=== PATIENT | female | born 1945 | race Caucasian/White ===

== ENCOUNTER 2024-05-03 07:56 | Observation (INO) | payer OTHER ==
[2024-05-02 11:45] VITALS: BMI 38.6
[2024-05-03] MEDS ORDERED: PROPOFOL 20 ML ONE (10:25)
[2024-05-03] MEDS ORDERED: fentaNYL PF 100 MCG/2 ML SYRINGE ONE (10:25)
[2024-05-03] MEDS ORDERED: Ondansetron PF 4 MG/2 ML Vial ONE (10:26)
[2024-05-03] MEDS ORDERED: Lidocaine 1% PF 5 ML VIAL ONE (10:26)
[2024-05-03] MEDS ORDERED: Dexamethasone 20 MG/5 ML VIAL ONE (10:26)
[2024-05-03] MEDS ORDERED: Lidocaine 2% 6 ML (Jelly) SYR ONE (10:30)
[2024-05-03] MEDS ORDERED: EPINEPHrine 1 MG/ML VIAL ONE (11:07)
[2024-05-03] MEDS ORDERED: PHENYLEPHRINE-NS 100 MCG/ML 10 ML SYRINGE ONE (11:07)
[2024-05-03 11:18] LABS: Hematocrit 42.9 % (36.0-47.0); Hemoglobin 14.5 g/dL (12.0-16.0)
[2024-05-03 11:55] LABS: Anion Gap 15 mmol/L (10-20); BUN (Urea Nitrogen) 13 mg/dL (9.8-20.1); Calc. Creatinine Clearance 91 mL/min (70-130); Calcium 9.3 mg/dL (7.8-10.44); Carbon Dioxide 21 mmol/L (23-31); Chloride 102 mmol/L (98-107); Estimated GFR 78; Glucose 91 mg/dL (83-110); Potassium 4.1 mmol/L (3.5-5.1); Sodium 134 mmol/L (136-145)
[2024-05-03] MEDS ORDERED: Dexamethasone 4 mg/ml Vial ONE (16:09)
[2024-05-03] MEDS ORDERED: Furosemide 20 MG (2 mL) VIAL ONE (16:25)
[2024-05-03] MEDS ORDERED: Ipratropium/Albuterol 3 ML NEB ONE (16:52)
[2024-05-03] MEDS ORDERED: Senokot S 8.6-50 MG TAB PO PRN (17:53)
[2024-05-03] MEDS ORDERED: Acetaminophen 325 MG TAB PO PRN (17:53)
[2024-05-03] MEDS ORDERED: Ondansetron PF 4 MG/2 ML Vial IVP PRN (17:53)
[2024-05-03] MEDS ORDERED: Calcium Carbonate 500 MG ChewTAB PO PRN (17:53)
[2024-05-03 19:06] LABS: #Basophils 0.04 10x3/uL (0.0-0.2); #Eosinphils Less than 0.03 10x3/uL (0.0-0.7); %Basophils 0.3 % (0.0-1.0); %Eosinophils 0.1 % (0.0-10.0); %Lymphocytes 6.6 % (21.0-51.0); %Monocytes 1.3 % (0.0-10.0); %Neutrophils 91.4 % (42.0-75.0); Hematocrit 44.5 % (36.0-47.0); Hemoglobin 14.6 g/dL (12.0-16.0); Mean Corpuscular HGB CONC 32.8 g/dL (32.0-36.0); Mean Corpuscular Hemoglobin 30.7 pg (27.0-31.0); Mean Corpuscular Volume 93.7 fL (78.0-98.0); Mean Platelet Volume 9.2 fL (7.4-10.4); Platelet Count 231 10x3/uL (130-400); RBC Distribution Width 11.7 % (11.5-14.5); Red Blood Cell (RBC) Count 4.75 mill/uL (4.20-5.40)
[2024-05-03 19:36] LABS: ALT (SGPT) 10 U/L (8-55); AST (SGOT) 19 U/L (5-34); Albumin 3.8 g/dL (3.4-4.8); Alkaline Phosphatase 96 U/L (40-110); Anion Gap 13 mmol/L (10-20); BUN (Urea Nitrogen) 13 mg/dL (9.8-20.1); Bilirubin, Total 0.5 mg/dL (0.2-1.2); Calc. Creatinine Clearance 89 mL/min (70-130); Calcium 9.2 mg/dL (7.8-10.44); Carbon Dioxide 22 mmol/L (23-31); Chloride 100 mmol/L (98-107); Estimated GFR 76; Globulin 3.4 g/dL (2.4-3.5); Glucose 133 mg/dL (83-110); Potassium 3.6 mmol/L (3.5-5.1); Protein, Total 7.2 g/dL (5.8-8.1); Sodium 131 mmol/L (136-145)
[2024-05-03] MEDS: Dexamethasone 10 MG/ML VIAL PO SCH (20:25)
[2024-05-03] MEDS: Dexamethasone Intensol 1MG/ML 30 ML BOT PO SCH (20:25)
[2024-05-03] MEDS: Hydrochlorothiazide 25 MG TAB PO SCH (20:58)
[2024-05-03] MEDS: Torsemide 20 MG TAB PO SCH (20:59)
[2024-05-03] MEDS: Carvedilol 25 MG TAB PO SCH (20:59)
[2024-05-03] MEDS: Gabapentin 300 MG CAP PO SCH (21:00)
[2024-05-03] MEDS: Sacubitril 24MG/Valsartan 26 MG TAB PO SCH (21:00)
[2024-05-03] MEDS ORDERED: Torsemide 20 MG TAB PO SCH (21:00)
[2024-05-03] MEDS ORDERED: Gabapentin 300 MG CAP PO SCH (21:00)
[2024-05-03] MEDS: Ipratropium/Albuterol 3 ML NEB NEB PRN (21:36)
[2024-05-04 05:39] LABS: #Basophils Less than 0.03 10x3/uL (0.0-0.2); #Eosinphils Less than 0.03 10x3/uL (0.0-0.7); %Lymphocytes 21.3 % (21.0-51.0); %Monocytes 3.3 % (0.0-10.0); %Neutrophils 75.2 % (42.0-75.0); Hematocrit 42.1 % (36.0-47.0); Hemoglobin 14.4 g/dL (12.0-16.0); Mean Corpuscular HGB CONC 34.2 g/dL (32.0-36.0); Mean Corpuscular Volume 90.7 fL (78.0-98.0); Mean Platelet Volume 9.7 fL (7.4-10.4); Platelet Count 238 10x3/uL (130-400); RBC Distribution Width 11.7 % (11.5-14.5); Red Blood Cell (RBC) Count 4.64 mill/uL (4.20-5.40)
[2024-05-04 06:05] LABS: ALT (SGPT) 10 U/L (8-55); AST (SGOT) 17 U/L (5-34); Albumin 3.4 g/dL (3.4-4.8); Alkaline Phosphatase 92 U/L (40-110); Anion Gap 13 mmol/L (10-20); BUN (Urea Nitrogen) 14 mg/dL (9.8-20.1); Bilirubin, Total 0.4 mg/dL (0.2-1.2); Calc. Creatinine Clearance 81 mL/min (70-130); Calcium 9.2 mg/dL (7.8-10.44); Carbon Dioxide 27 mmol/L (23-31); Chloride 97 mmol/L (98-107); Estimated GFR 67; Globulin 3.3 g/dL (2.4-3.5); Glucose 155 mg/dL (83-110); Potassium 3.6 mmol/L (3.5-5.1); Protein, Total 6.7 g/dL (5.8-8.1); Sodium 133 mmol/L (136-145)
[2024-05-04] MEDS: Hydrochlorothiazide 25 MG TAB PO SCH (09:13)
[2024-05-04] MEDS: Torsemide 20 MG TAB PO SCH (09:13)
[2024-05-04] MEDS: Dexamethasone 10 MG/ML VIAL SLOW IVP SCH (09:14)
[2024-05-04] MEDS: Losartan 25 MG TAB PO SCH (09:14)
[2024-05-04 13:14] VITALS: BP 142/82; TEMP 97.9
== END 2024-05-04 15:30 | disposition home or self-care (01) ==
LOC: SDC 07:56 → SURG A 18:20
PROVIDERS: ADMIT Internal Medicine; ATTEND Internal Medicine
PROC: 0CBV8ZX Excision of Left Vocal Cord, Via Natural or Artificial Opening Endoscopic, Diagnostic (ICD-10-PCS; principal; 2024-05-03)
DX: C32.0 Malignant neoplasm of glottis (principal); J38.00 Paralysis of vocal cords and larynx, unspecified; I25.2 Old myocardial infarction; K21.9 Gastro-esophageal reflux disease without esophagitis; E03.9 Hypothyroidism, unspecified; I11.0 Hypertensive heart disease with heart failure; I50.9 Heart failure, unspecified; Z79.899 Other long term (current) drug therapy; Z91.041 Radiographic dye allergy status; Z91.013 Allergy to seafood; Z88.5 Allergy status to narcotic agent; Z98.890 Other specified postprocedural states; Z87.891 Personal history of nicotine dependence
CPT/HCPCS: 31536; 80048; 80053 ×2; 83880; 85014; 85018; 85025 ×2; 94640; J0171; J1100 ×4; J1940; J2405; J2704; J8540; 36415; 88305; 96374; G0378; J7620

== ENCOUNTER 2024-05-18 09:58 | Inpatient (IN) | payer OTHER, MEDICARE ==
[2024-05-18] MEDS ORDERED: EPINEPHrine 1 MG/ML VIAL ONE (10:56)
[2024-05-18] MEDS ORDERED: Lidocaine 1% (PF) 30 ML VIAL ONE (10:56)
[2024-05-18] MEDS ORDERED: Rocuronium Bromide 10 MG/ML (10ML VIAL) ONE (12:28)
[2024-05-18] MEDS ORDERED: SUGAMMADEX SODIUM 200 MG/2 ML VIAL ONE (12:28)
[2024-05-18] MEDS ORDERED: PROPOFOL 40 ML ONE (12:28)
[2024-05-18] MEDS ORDERED: fentaNYL PF 100 MCG/2 ML SYRINGE ONE (12:28)
[2024-05-18] MEDS ORDERED: Lidocaine 1% PF 5 ML VIAL ONE (12:28)
[2024-05-18] MEDS ORDERED: Ondansetron PF 4 MG/2 ML Vial ONE (12:28)
[2024-05-18] MEDS ORDERED: Dexamethasone 4 mg/ml Vial ONE (12:28)
[2024-05-18] MEDS ORDERED: Ketamine In 0.9 % NaCl 50 MG/5 ML SYRINGE ONE (13:38)
[2024-05-18] MEDS ORDERED: PHENYLEPHRINE-NS 100 MCG/ML 10 ML SYRINGE ONE (14:04)
[2024-05-18] MEDS ORDERED: Ventilator Sedation Protocol 1 EACH FS SCH (14:56)
[2024-05-18] MEDS ORDERED: Ondansetron PF 4 MG/2 ML Vial IVP PRN (15:06)
[2024-05-18] MEDS ORDERED: DISCONTINUE PREVIOUS NARCOTIC PAIN MEDICATIONS AND BENZODIAZEPINES FS SCH (15:15)
[2024-05-18] MEDS ORDERED: Fentanyl BOLUS 250 ML IVPB PRN (15:15)
[2024-05-18] MEDS ORDERED: Lorazepam 2 MG/ML VIAL SLOW IVP PRN (15:15)
[2024-05-18] MEDS ORDERED: Fentanyl CADD 100 ML IV SCH (15:15)
[2024-05-18] MEDS ORDERED: Propofol BOLUS 1,000 MG/100 ML VIAL IV PRN (15:15)
[2024-05-18] MEDS: D5 1/2 NS w/20 mEq KCL 1,000 ML IV SCH (15:37)
[2024-05-18] MEDS ORDERED: Hydrocodone-Acetamin 15 ML UDCUP PO PRN (17:08)
[2024-05-18] MEDS: CEFAZOLIN 1 GM in Sodium Chloride 0.9% 100 ML IVPB SCH (17:50)
[2024-05-18] MEDS: Sodium Chloride 0.45% 1,000 ML IV SCH (17:50)
[2024-05-18] MEDS: Propofol 1,000 MG/100 ML VIAL IV PRN (19:49)
[2024-05-19] MEDS: Pantoprazole 40 MG VIAL IVP SCH (08:49)
[2024-05-19 10:27] LABS: #Basophils 0.03 10x3/uL (0.0-0.2); %Basophils 0.3 % (0.0-1.0); %Eosinophils 0.3 % (0.0-10.0); %Lymphocytes 16.7 % (21.0-51.0); %Neutrophils 74.2 % (42.0-75.0); Hemoglobin 13.8 g/dL (12.0-16.0); Mean Corpuscular HGB CONC 34.5 g/dL (32.0-36.0); Mean Corpuscular Hemoglobin 31.2 pg (27.0-31.0); Mean Corpuscular Volume 90.3 fL (78.0-98.0); Mean Platelet Volume 9.4 fL (7.4-10.4); Platelet Count 202 10x3/uL (130-400); RBC Distribution Width 11.9 % (11.5-14.5); Red Blood Cell (RBC) Count 4.43 mill/uL (4.20-5.40)
[2024-05-19 11:04] LABS: Anion Gap 14 mmol/L (10-20); BUN (Urea Nitrogen) 19 mg/dL (9.8-20.1); Calc. Creatinine Clearance 87 mL/min (70-130); Calcium 8.7 mg/dL (7.8-10.44); Carbon Dioxide 29 mmol/L (23-31); Chloride 94 mmol/L (98-107); Estimated GFR 77; Glucose 95 mg/dL (83-110); Potassium 3.3 mmol/L (3.5-5.1); Sodium 134 mmol/L (136-145)
[2024-05-19] MEDS: hydrALAZINE 20 MG/ML VIAL SLOW IVP PRN (12:03)
[2024-05-19] MEDS: Potassium Chloride 20 MEQ in Premix 1 BAG IVPB SCH (14:35)
[2024-05-19] MEDS: Sodium Chloride 0.9% 1,000 ML IV SCH (14:35)
[2024-05-20 03:38] LABS: #Basophils 0.05 10x3/uL (0.0-0.2); %Basophils 0.5 % (0.0-1.0); %Eosinophils 0.7 % (0.0-10.0); %Lymphocytes 22.1 % (21.0-51.0); %Monocytes 8.3 % (0.0-10.0); %Neutrophils 67.9 % (42.0-75.0); Hematocrit 38.3 % (36.0-47.0); Hemoglobin 13.1 g/dL (12.0-16.0); Mean Corpuscular HGB CONC 34.2 g/dL (32.0-36.0); Mean Corpuscular Hemoglobin 30.5 pg (27.0-31.0); Mean Corpuscular Volume 89.1 fL (78.0-98.0); Mean Platelet Volume 9.9 fL (7.4-10.4); Platelet Count 195 10x3/uL (130-400)
[2024-05-20 04:04] LABS: ALT (SGPT) 8 U/L (8-55); AST (SGOT) 22 U/L (5-34); Albumin 2.6 g/dL (3.4-4.8); Alkaline Phosphatase 71 U/L (40-110); Anion Gap 14 mmol/L (10-20); BUN (Urea Nitrogen) 14 mg/dL (9.8-20.1); Bilirubin, Total 1.1 mg/dL (0.2-1.2); Calc. Creatinine Clearance 102 mL/min (70-130); Calcium 8.3 mg/dL (7.8-10.44); Carbon Dioxide 25 mmol/L (23-31); Chloride 100 mmol/L (98-107); Estimated GFR 88; Glucose 88 mg/dL (83-110); Potassium 3.6 mmol/L (3.5-5.1); Protein, Total 5.6 g/dL (5.8-8.1); Sodium 135 mmol/L (136-145)
[2024-05-20] MEDS: DC Sedation Protocol FS ONE (11:11)
[2024-05-20] MEDS: Albumin 25% 25 GM (100 mL) BOT IVPB SCH (11:43)
[2024-05-21 05:53] LABS: #Basophils 0.04 10x3/uL (0.0-0.2); %Basophils 0.4 % (0.0-1.0); %Eosinophils 1.2 % (0.0-10.0); %Lymphocytes 18.2 % (21.0-51.0); %Monocytes 6.7 % (0.0-10.0); %Neutrophils 73.3 % (42.0-75.0); Hematocrit 38.3 % (36.0-47.0); Hemoglobin 12.6 g/dL (12.0-16.0); Mean Corpuscular HGB CONC 32.9 g/dL (32.0-36.0); Mean Corpuscular Volume 94.1 fL (78.0-98.0); Mean Platelet Volume 9.7 fL (7.4-10.4); Platelet Count 198 10x3/uL (130-400); RBC Distribution Width 12.1 % (11.5-14.5); Red Blood Cell (RBC) Count 4.07 mill/uL (4.20-5.40)
[2024-05-21 06:29] LABS: ALT (SGPT) 8 U/L (8-55); AST (SGOT) 20 U/L (5-34); Albumin 2.6 g/dL (3.4-4.8); Alkaline Phosphatase 69 U/L (40-110); Anion Gap 12 mmol/L (10-20); BUN (Urea Nitrogen) 10 mg/dL (9.8-20.1); Bilirubin, Total 0.8 mg/dL (0.2-1.2); Calc. Creatinine Clearance 110 mL/min (70-130); Calcium 8.7 mg/dL (7.8-10.44); Carbon Dioxide 22 mmol/L (23-31); Chloride 104 mmol/L (98-107); Estimated GFR 90; Globulin 3.1 g/dL (2.4-3.5); Glucose 101 mg/dL (83-110); Potassium 3.1 mmol/L (3.5-5.1); Protein, Total 5.7 g/dL (5.8-8.1); Sodium 135 mmol/L (136-145)
[2024-05-21] MEDS ORDERED: Electrolyte Replacement Protocol 1 EACH FS SCH (07:45)
[2024-05-21] MEDS: Aspirin Chewable 81 MG TAB PO SCH (11:14)
[2024-05-21] MEDS: Sacubitril 24MG/Valsartan 26 MG TAB PO SCH (11:15)
[2024-05-21] MEDS: Torsemide 20 MG TAB PO SCH (11:15)
[2024-05-21] MEDS: Gabapentin 300 MG CAP PO SCH (11:17)
[2024-05-21] MEDS: Dexamethasone 1 MG TAB PO SCH ×2 (11:17→15:24)
[2024-05-21] MEDS: Potassium Chloride 20 MEQ in Premix 1 BAG IVPB SCH (11:19)
[2024-05-21] MEDS ORDERED: Ipratropium/Albuterol 3 ML NEB NEB PRN (12:30)
[2024-05-21] MEDS: Levothyroxine Sodium 112 MCG TAB PO SCH (14:02)
[2024-05-21] MEDS: Non-Formulary Item 1 EACH (Telmisartan/Hydrochlorothiazid [Telmisartan-Hctz 40-12.5 Mg Tb PO SCH (14:03)
[2024-05-21] MEDS: Atorvastatin Calcium 40 MG TAB PO SCH (21:59)
[2024-05-21] MEDS: Carvedilol 6.25 MG TAB PO SCH (22:00)
[2024-05-22] MEDS: Levothyroxine Sodium 112 MCG TAB PO SCH (06:40)
[2024-05-22] MEDS: Ipratropium/Albuterol 3 ML NEB NEB SCH (10:27)
[2024-05-22] MEDS: guaiFENesin ER 600 MG TAB PO SCH ×2 (10:47→21:56)
[2024-05-22] MEDS: Scopolamine 1 mg/72 hour Patch TD SCH (14:24)
[2024-05-22] MEDS ORDERED: Ipratropium/Albuterol 3 ML NEB NEB SCH (14:30)
[2024-05-23] MEDS: Potassium Chloride 20 MEQ TAB PO SCH (09:18)
[2024-05-23] MEDS: Furosemide 20 MG (2 mL) VIAL SLOW IVP SCH ×2 (09:30→17:10)
[2024-05-24 07:48] LABS: Anion Gap 13 mmol/L (10-20); BUN (Urea Nitrogen) 10 mg/dL (9.8-20.1); Calc. Creatinine Clearance 103 mL/min (70-130); Calcium 8.6 mg/dL (7.8-10.44); Carbon Dioxide 31 mmol/L (23-31); Chloride 94 mmol/L (98-107); Estimated GFR 87; Glucose 95 mg/dL (83-110); Magnesium 1.5 mg/dL (1.6-2.6); Potassium 3.5 mmol/L (3.5-5.1); Sodium 134 mmol/L (136-145)
[2024-05-24] MEDS: Furosemide 40 MG (4 mL) VIAL SLOW IVP SCH (09:24)
[2024-05-24] MEDS: Potassium Chloride 20 MEQ TAB PO SCH (09:33)
[2024-05-24] MEDS: Magnesium 2 GM/50 ML(in water) 2 GM in Premix 1 BAG IVPB SCH (09:34)
[2024-05-25 08:52] LABS: Anion Gap 12 mmol/L (10-20); BUN (Urea Nitrogen) 9 mg/dL (9.8-20.1); Calc. Creatinine Clearance 105 mL/min (70-130); Carbon Dioxide 28 mmol/L (23-31); Chloride 95 mmol/L (98-107); Estimated GFR 88; Glucose 131 mg/dL (83-110); Potassium 4.3 mmol/L (3.5-5.1); Sodium 131 mmol/L (136-145)
[2024-05-25] MEDS: Magnesium 2 GM/50 ML(in water) 2 GM in Premix 1 BAG IVPB SCH (10:13)
[2024-05-25] MEDS: Torsemide 20 MG TAB PO SCH (20:48)
[2024-05-26 12:38] LABS: Anion Gap 11 mmol/L (10-20); BUN (Urea Nitrogen) 12 mg/dL (9.8-20.1); Calc. Creatinine Clearance 93 mL/min (70-130); Calcium 9.2 mg/dL (7.8-10.44); Carbon Dioxide 36 mmol/L (23-31); Chloride 91 mmol/L (98-107); Estimated GFR 81; Glucose 106 mg/dL (83-110); Potassium 3.5 mmol/L (3.5-5.1); Sodium 134 mmol/L (136-145)
[2024-05-26] MEDS: Potassium Chloride 20 MEQ TAB PO SCH (13:46)
[2024-05-27 05:12] LABS: Anion Gap 14 mmol/L (10-20); BUN (Urea Nitrogen) 19 mg/dL (9.8-20.1); Calc. Creatinine Clearance 109 mL/min (70-130); Calcium 8.9 mg/dL (7.8-10.44); Carbon Dioxide 30 mmol/L (23-31); Chloride 95 mmol/L (98-107); Estimated GFR 89; Glucose 106 mg/dL (83-110); Potassium 4.4 mmol/L (3.5-5.1); Sodium 135 mmol/L (136-145)
[2024-05-27] MEDS ORDERED: Ipratropium/Albuterol 3 ML NEB NEB PRN (11:34)
[2024-05-27] MEDS: Budesonide 0.5 MG/2 ML NEB INH SCH (19:20)
[2024-05-27] MEDS: Ipratropium/Albuterol 3 ML NEB NEB PRN (19:30)
[2024-05-28 11:45] LABS: #Basophils 0.04 10x3/uL (0.0-0.2); %Basophils 0.3 % (0.0-1.0); %Eosinophils 1.6 % (0.0-10.0); %Lymphocytes 17.9 % (21.0-51.0); %Monocytes 8.4 % (0.0-10.0); %Neutrophils 71.2 % (42.0-75.0); Hematocrit 38.9 % (36.0-47.0); Hemoglobin 13.1 g/dL (12.0-16.0); Mean Corpuscular HGB CONC 33.7 g/dL (32.0-36.0); Mean Corpuscular Volume 92.2 fL (78.0-98.0); Mean Platelet Volume 9.5 fL (7.4-10.4); Platelet Count 279 10x3/uL (130-400); RBC Distribution Width 12.2 % (11.5-14.5); Red Blood Cell (RBC) Count 4.22 mill/uL (4.20-5.40)
[2024-05-28 12:00] LABS: Anion Gap 14 mmol/L (10-20); BUN (Urea Nitrogen) 20 mg/dL (9.8-20.1); Calc. Creatinine Clearance 84 mL/min (70-130); Calcium 8.5 mg/dL (7.8-10.44); Carbon Dioxide 31 mmol/L (23-31); Chloride 92 mmol/L (98-107); Estimated GFR 73; Glucose 93 mg/dL (83-110); Potassium 3.8 mmol/L (3.5-5.1); Sodium 133 mmol/L (136-145)
[2024-05-28] MEDS: Magnesium 2 GM/50 ML(in water) 2 GM in Premix 1 BAG IVPB SCH (13:10)
[2024-05-28] MEDS: Heparin 5,000 UNITS/ML VIAL SC SCH (21:43)
[2024-05-29 07:11] LABS: Magnesium 2.3 mg/dL (1.6-2.6)
[2024-05-29] MEDS: Pantoprazole DR 40 MG TAB PO SCH (09:58)
[2024-05-29 10:33] LABS: Anion Gap 15 mmol/L (10-20); BUN (Urea Nitrogen) 20 mg/dL (9.8-20.1); Calc. Creatinine Clearance 84 mL/min (70-130); Calcium 8.5 mg/dL (7.8-10.44); Carbon Dioxide 30 mmol/L (23-31); Chloride 90 mmol/L (98-107); Estimated GFR 73; Glucose 151 mg/dL (83-110); Potassium 3.7 mmol/L (3.5-5.1); Sodium 131 mmol/L (136-145)
[2024-05-29 20:02] VITALS: BMI 36.5
[2024-05-31] MEDS: Amlodipine 5 MG TAB PO SCH (17:52)
[2024-06-01] MEDS ORDERED: Amlodipine 5 MG TAB PO SCH (09:00)
[2024-06-01 17:03] VITALS: BMI 36.0
[2024-06-02 06:34] LABS: #Basophils 0.03 10x3/uL (0.0-0.2); #Eosinphils Less than 0.03 10x3/uL (0.0-0.7); %Basophils 0.4 % (0.0-1.0); %Eosinophils 0.1 % (0.0-10.0); %Lymphocytes 25.7 % (21.0-51.0); %Monocytes 6.3 % (0.0-10.0); %Neutrophils 66.9 % (42.0-75.0); Hematocrit 44.7 % (36.0-47.0); Mean Corpuscular HGB CONC 33.6 g/dL (32.0-36.0); Mean Corpuscular Hemoglobin 30.5 pg (27.0-31.0); Mean Platelet Volume 9.6 fL (7.4-10.4); Platelet Count 212 10x3/uL (130-400); Red Blood Cell (RBC) Count 4.91 mill/uL (4.20-5.40)
[2024-06-02 06:53] LABS: Anion Gap 17 mmol/L (10-20); BUN (Urea Nitrogen) 28 mg/dL (9.8-20.1); Calc. Creatinine Clearance 84 mL/min (70-130); Calcium 8.9 mg/dL (7.8-10.44); Carbon Dioxide 26 mmol/L (23-31); Chloride 97 mmol/L (98-107); Estimated GFR 79; Glucose 97 mg/dL (83-110); Potassium 3.7 mmol/L (3.5-5.1); Sodium 136 mmol/L (136-145)
[2024-06-02 13:13] VITALS: BP 131/80; TEMP 97.7
== END 2024-06-02 14:45 | disposition home health service (06) | DRG 11 ==
LOC: SDC 09:58 → CCU 14:57 → SJJU 05-20 13:19 → T4-A 05-30 00:36
PROVIDERS: ADMIT Specialist; ATTEND Internal Medicine
PROC: 0B110Z4 Bypass Trachea to Cutaneous, Open Approach (ICD-10-PCS; principal; 2024-05-18)
PROC: 5A1935Z Respiratory Ventilation, Less than 24 Consecutive Hours (ICD-10-PCS; 2024-05-18)
PROC: 0BH17EZ Insertion of Endotracheal Airway into Trachea, Via Natural or Artificial Opening (ICD-10-PCS; 2024-05-18)
DX: C32.9 Malignant neoplasm of larynx, unspecified (principal); I50.33 Acute on chronic diastolic (congestive) heart failure; E87.1 Hypo-osmolality and hyponatremia; I13.0 Hypertensive heart and chronic kidney disease with heart failure and stage 1 through stage 4 chronic kidney disease, or unspecified chronic kidney disease; J38.3 Other diseases of vocal cords; R13.12 Dysphagia, oropharyngeal phase; R53.81 Other malaise; E78.5 Hyperlipidemia, unspecified; E03.9 Hypothyroidism, unspecified; N18.2 Chronic kidney disease, stage 2 (mild); E87.6 Hypokalemia; E83.42 Hypomagnesemia; Z66 Do not resuscitate; E66.01 Morbid (severe) obesity due to excess calories; G62.9 Polyneuropathy, unspecified; Z88.5 Allergy status to narcotic agent; Z91.041 Radiographic dye allergy status; Z90.49 Acquired absence of other specified parts of digestive tract; Z90.11 Acquired absence of right breast and nipple; Z68.36 Body mass index [BMI] 36.0-36.9, adult; Z91.013 Allergy to seafood; Z90.710 Acquired absence of both cervix and uterus; Z79.899 Other long term (current) drug therapy; Z85.3 Personal history of malignant neoplasm of breast; Z79.82 Long term (current) use of aspirin; Z79.890 Hormone replacement therapy
CPT/HCPCS: 36415; 36416; 71045; 80048; 80053; 83735; 83880; 85025; 94002; 94003; 94640; J0171; J0360; J0690; J1100; J1644; J1940; J2001; J2405; J2470; J2704; J3475; J3480; J3490; J7030; J7620; J7626; J8540